=== PATIENT | female | born 1990 | race Caucasian/White ===

== ENCOUNTER 2019-10-24 05:02 | Inpatient (IN) | payer BC ==
[~2019-10-24] VITALS: Ht 149.9 cm; Wt 68.6 kg
[2019-10-24] MEDS ORDERED: LIDOCAINE 1%, 20ML ONE ×2 (05:11→05:50)
[2019-10-24] MEDS ORDERED: MISOPROSTOL 200 MCG TABLET ONE (05:11)
[2019-10-24] MEDS ORDERED: NEWBORN KIT ONE (05:11)
[2019-10-24] MEDS ORDERED: OXYTOCIN 30U/ 0.9% NaCL 500ML 500 ML ONE ×2 (05:12→11:20)
[2019-10-24] MEDS ORDERED: LACTATED RINGERS 1,000 ML IV SCH (05:13)
[2019-10-24] MEDS ORDERED: D5%-LACTATED RINGERS 1,000 ML IV SCH (05:13)
[2019-10-24] MEDS ORDERED: OXYTOCIN 30U/ 0.9% NaCL 500ML 500 ML IV ONE (05:13)
[2019-10-24 05:17] VITALS: BP 124/99
[2019-10-24] MEDS ORDERED: TERBUTALINE 1 MG/ML, 1ML IVPush PRN (05:30)
[2019-10-24] MEDS ORDERED: TERBUTALINE 1 MG/ML, 1ML SQ PRN (05:30)
[2019-10-24] MEDS ORDERED: LACTATED RINGERS 1,000 ML IVBOLUS PRN (05:30)
[2019-10-24] MEDS ORDERED: CALCIUM CARBONATE 500 MG TAB.CHEW PO PRN (05:30)
[2019-10-24] MEDS ORDERED: FENTANYL PF 100 MCG/2ML IV PRN (05:30)
[2019-10-24] MEDS ORDERED: ONDANSETRON 2MG/ML, 2ML IVPush PRN (05:30)
[2019-10-24] MEDS ORDERED: FENTANYL PF 100 MCG/2ML IVPush PRN (05:30)
[2019-10-24 05:34] LABS: BASOPHILS # (AUTO) 0.05 x10^3/uL (0-0.1); BASOPHILS % (AUTO) 0 % (0-1); EOSINOPHILS % (AUTO) 2 % (1-7); LYMPHOCYTES # (AUTO) 3.03 x10^3/uL (1-3.4); LYMPHOCYTES % (AUTO) 20 % (22-44); MD NO; MEAN CORPUSCULAR HEMOGLOBIN 27.8 pg (27.0-34.8); MEAN CORPUSCULAR HGB CONC 32.7 g/dL (32.4-35.8); MEAN CORPUSCULAR VOLUME 85.1 fL (80-100); MEAN PLATELET VOLUME 8.2 fL (7.4-10.4); MONOCYTES # (AUTO) 0.96 x10^3/uL (0.2-0.8); MONOCYTES % (AUTO) 6 % (2-9); NEUTROPHILS # (AUTO) 10.91 x10^3/uL (1.8-6.8); NEUTROPHILS % (AUTO) 72 % (42-75); PLATELET COUNT 262 x10^3/uL (130-400); RED BLOOD COUNT 5.19 x10^6/uL (3.82-5.3); RED CELL DISTRIBUTION WIDTH 14.7 % (9.6-15.2)
[2019-10-24] MEDS ORDERED: FENTANYL/BUPIV./NS/PF 250 ML EPIDCONT ONE (05:49)
[2019-10-24] MEDS ORDERED: BUPIVACAINE 0.25% ONE ×2 (05:49→05:50)
[2019-10-24] MEDS ORDERED: LIDOCAINE/PF 1.5%-EPI 1:200K, 30ML ONE (05:50)
[2019-10-24] MEDS ORDERED: EPHEDRINE 50 MG/ML, 1ML ONE (06:37)
[2019-10-24] MEDS ORDERED: FENTANYL/BUPIV./NS/PF 250 ML EPIDCONT SCH (06:42)
[2019-10-24] MEDS ORDERED: EPHEDRINE 50 MG/ML, 1ML IVPush PRN (07:00)
[2019-10-24] MEDS ORDERED: PNV1TABL97 PO ×2 (07:37→07:38)
[2019-10-24] MEDS: OXYTOCIN 30U/ 0.9% NaCL 500ML 500 ML IV SCH ×2 (11:48→21:48)
[2019-10-24] MEDS ORDERED: OXYcodone/APAP 5/325MG TABLET PO PRN (12:00)
[2019-10-24] MEDS ORDERED: SIMETHICONE 80 MG CHEW TAB PO PRN (12:00)
[2019-10-24] MEDS ORDERED: MISOPROSTOL 200 MCG TABLET PR PRN (12:00)
[2019-10-24] MEDS ORDERED: IBUPROFEN 600 MG TABLET ONE (12:15)
[2019-10-24] MEDS: IBUPROFEN 600 MG TABLET PO PRN ×2 (12:16→20:38)
[2019-10-24 14:00] VITALS: BP 113/72
[2019-10-24 17:30] VITALS: BP 113/73
[2019-10-24 20:00] VITALS: BP 99/62
[2019-10-24 20:05] LABS: MD YES; MEAN CORPUSCULAR HEMOGLOBIN 27.8 pg (27.0-34.8); MEAN CORPUSCULAR HGB CONC 32.4 g/dL (32.4-35.8); MEAN CORPUSCULAR VOLUME 85.7 fL (80-100); MEAN PLATELET VOLUME 8.7 fL (7.4-10.4); PLATELET COUNT 264 x10^3/uL (130-400); RED BLOOD COUNT 4.61 x10^6/uL (3.82-5.3); RED CELL DISTRIBUTION WIDTH 14.9 % (9.6-15.2)
[2019-10-24 20:26] LABS: BAND#(MANUAL) 0.19 x10^3/uL; BANDS%(MANUAL) 1 % (0-7); EOS#(MANUAL) 0.19 x10^3/uL (0.0-0.4); EOS% (MANUAL) 1 % (1-7); LYMPH#(MANUAL) 2.87 x10^3/uL (1-3.4); LYMPHS% (MANUAL) 15 % (22-44); MONOS#(MANUAL) 0.19 x10^3/uL (0.3-2.7); MONOS% (MANUAL) 1 % (2-9); SEG#(MANUAL) 15.66 x10^3/uL (1.8-6.8); SEGS% (MANUAL) 82 % (42-75)
[2019-10-24 20:27] LABS: <PLATELET ESTIMATE> ADEQUATE; <PLT MORPHOLOGY> NORMAL PLT MORPH; <RBC MORPHOLOGY> NORMAL
[2019-10-24] MEDS: DOCUSATE 100 MG CAPSULE PO PRN (20:38)
[2019-10-24 23:47] VITALS: BP 99/62
[2019-10-25 04:16] VITALS: BP 99/64
[2019-10-25 07:00] VITALS: BP 100/63
[2019-10-25] MEDS ORDERED: IBUP-1223 PO (07:46)
[2019-10-25] MEDS: DOCUSATE 100 MG CAPSULE PO PRN (07:59)
[2019-10-25] MEDS: IBUPROFEN 600 MG TABLET PO PRN ×2 (07:59→14:08)
[2019-10-25] MEDS ORDERED: PRENATAL VIT/IRON/FA 1 EACH TABLET PO SCH (09:00)
== END 2019-10-25 14:40 | disposition home or self-care (01) | DRG 807 ==
LOC: LDOP 05:02 → LDIP 05:11 → 2NW 13:24
PROVIDERS: ADMIT Obstetrics & Gynecology; ATTEND Obstetrics & Gynecology
PROC: 10E0XZZ Delivery of Products of Conception, External Approach (ICD-10-PCS; principal; 2019-10-24)
PROC: 0KQM0ZZ Repair Perineum Muscle, Open Approach (ICD-10-PCS; 2019-10-24)
PROC: 3E0R3BZ Introduction of Anesthetic Agent into Spinal Canal, Percutaneous Approach (ICD-10-PCS; 2019-10-24)
PROC: 00HU33Z Insertion of Infusion Device into Spinal Canal, Percutaneous Approach (ICD-10-PCS; 2019-10-24)
PROC: 10907ZC Drainage of Amniotic Fluid, Therapeutic from Products of Conception, Via Natural or Artificial Opening (ICD-10-PCS; 2019-10-24)
DX: O70.1 Second degree perineal laceration during delivery (principal); Z37.0 Single live birth; Z3A.39 39 weeks gestation of pregnancy; Z20.828 Contact with and (suspected) exposure to other viral communicable diseases
CPT/HCPCS: 36415; J3490; 85025; 86592; 86850; 86900; 87635; G0378; J3010; J7120